=== PATIENT | male | born 1930 | race Caucasian/White ===

== ENCOUNTER → 2017-01-06 | Outpatient (CLI) | payer OTHER ==
[~2017-01-06] MED LIST: CALCIUM PO; FISHOIL PO; FOSAMAX 70 MG T70 M1 PO; HCTZ; HCTZ PO; HYDROCODON-ACE1 EACH PO; MULTIVITAMINS PO; VITAMIN D-32000 UNIT PO; ZOCOR; ZOCOR 10 MG TAB10 MG PO
== END ==
LOC: NUC 09:48
DX: S72.309A Unspecified fracture of shaft of unspecified femur, initial encounter for closed fracture (principal)